=== PATIENT | female | born 1995 | race American Indian/Alaskan Native ===

== ENCOUNTER 2017-10-30 07:23 | Emergency (ER) | payer MEDICAID ==
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
== END 2017-10-30 09:05 | disposition home or self-care (01) ==
LOC: DL.ED 07:23
DX: S60.222A Contusion of left hand, initial encounter (principal); S40.022A Contusion of left upper arm, initial encounter; Y04.2XXA Assault by strike against or bumped into by another person, initial encounter
CPT/HCPCS: 73130-LT; 99283

== ENCOUNTER 2025-02-27 17:43 | Emergency (ER) | payer SELFPAY ==
[2025-02-27] MEDS: Dexamethasone 4 MG/ML SDV PO ONE (18:02)
== END 2025-02-27 18:06 | disposition home or self-care (01) ==
LOC: DL.ED 17:43
DX: S46.911A Strain of unspecified muscle, fascia and tendon at shoulder and upper arm level, right arm, initial encounter (principal); X58.XXXA Exposure to other specified factors, initial encounter
CPT/HCPCS: 99283; J1100